=== PATIENT | female | born 1990 | race Caucasian/White ===

== ENCOUNTER 2017-05-07 18:10 | Inpatient (IN) | payer OTHER ==
[~2017-05-07] VITALS: Ht 160 cm; Wt 69.5 kg
[~2017-05-07 18:10] MED LIST: ADVIL200 MG PO; BACTRIM,SEPT1 TABLET PO; CLONIDINE HCL0.1 MG PO; EXCEDRIN MIGRA1 EAC3 PO; FEOSOL325 MG PO; IBUPROFEN800 MG PO; KEFLEX500 MG PO; MOTRIN800 MG PO; PRENATAL TABLE1 EAC3 PO; SUBOXONE 8 MG-1 EAC2 SL; TRAZODONE HCL50 MG PO
[2017-05-07 18:42] LABS: HEMATOCRIT 42.2 % (36.0-46.0); MCH 28.4 PG (29.0-34.0); MCHC 31.8 G/DL (30.0-36.0); MCV 89.4 FL (83-99); MEAN PLAT.VOLUME 11.3 uM^3 (9.5-12.4); PLATELET COUNT 108 K/uL (156-360); RBC DIS.WIDTH-CV 14.4 % (11.8-14.6); RBC DIS.WIDTH-SD 47.1 % (39-53); RED BLOOD COUNT 4.72 M/uL (3.80-5.20); WHITE BLOOD COUNT 6.5 K/uL (4.1-10.2)
[2017-05-07 18:54] LABS: CHLORIDE 105 mEq/L (99-109); POTASSIUM 3.9 mEq/L (3.7-5.4); SODIUM 139 mEq/L (136-147)
[2017-05-07 18:55] LABS: GLUCOSE 126 mg/dL (70-99)
[2017-05-07 18:57] LABS: ANION GAP 11 MEQ/L (2-14)
[2017-05-07 18:59] LABS: GFR ESTIMATE (CALCULATED) > 59 mL/min/
[2017-05-07 19:00] LABS: UREA NITROGEN (BUN) 16 mg/dL (9-23)
[2017-05-07] MEDS ORDERED: CLARITIN,ALAVAR10 MG PO (21:42)
[2017-05-07 23:57] LABS: D-DIMER ELISA 1.21 mg/L FEU (< 0.57)
[2017-05-08 00:42] VITALS: BP 101/60
[2017-05-08 03:23] VITALS: BP 98/50
[2017-05-08 06:31] LABS: ALKALINE PHOSPHATASE 34 IU/L (3-129); ANION GAP 6 MEQ/L (2-14); CHLORIDE 108 MEQ/L (99-109); GFR ESTIMATE (CALCULATED) > 59 mL/min/; GLUCOSE 99 mg/dL (70-99); POTASSIUM 3.7 MEQ/L (3.7-5.4); SAMPLE HEMOLYSIS CHECK 0; SAMPLE ICTERIC CHECK 0; SAMPLE LIPEMIA CHECK 0; SODIUM 139 MEQ/L (136-147); TOTAL BILIRUBIN 0.7 MG/DL (0.0-1.0); UREA NITROGEN (BUN) 12 mg/dL (9-23)
[2017-05-08 07:01] LABS: HEMATOCRIT 37.5 % (36.0-46.0); MCH 28.8 PG (29.0-34.0); MCHC 32.3 G/DL (30.0-36.0); MCV 89.3 FL (83-99); MEAN PLAT.VOLUME 10.4 uM^3 (9.5-12.4); RBC DIS.WIDTH-CV 14.6 % (11.8-14.6); RBC DIS.WIDTH-SD 47.8 % (39-53); WHITE BLOOD COUNT 11.7 K/uL (4.1-10.2)
[2017-05-08 07:05] LABS: PLATELET COUNT 163 K/uL (156-360)
[2017-05-08 07:33] VITALS: BP 98/55
[2017-05-08 10:30] LABS: HBSG INDEX 0.48
[2017-05-08 10:31] LABS: ANTI-HEPATITIS A VIRUS (IGM) Nonreactive; HAV INDEX 0.36
[2017-05-08 10:32] LABS: ANTI-HEPATITIS B CORE (IGM) Nonreactive; HBC IgM INDEX 0.15
[2017-05-08 10:33] LABS: HIV INDEX 0.06; HIV-1/2 AB/AG COMBO Nonreactive
[2017-05-08 10:36] LABS: HPCA INDEX 13.37
== END 2017-05-08 12:01 | disposition left against medical advice (07) | DRG 918 ==
LOC: EME → EDBD 18:10 → EDOF 23:08 → 5SOUTH 05-08 00:02
PROVIDERS: Emergency Medicine; Internal Medicine
DX: T40.1X1A Poisoning by heroin, accidental (unintentional), initial encounter (principal); F11.20 Opioid dependence, uncomplicated; R09.02 Hypoxemia; Y92.009 Unspecified place in unspecified non-institutional (private) residence as the place of occurrence of the external cause; F17.200 Nicotine dependence, unspecified, uncomplicated
CPT/HCPCS: 71010; 80048; 80053; 80074; 80306 90; 83605; 85027; 85379; 86703; 87040; 94799; 99202; 99281; 99285; G0480; J1644; J2310; J7030